=== PATIENT | female | born 1985 | race African-American/Black ===

== ENCOUNTER 2024-11-22 11:41 | Emergency (ER) | payer OTHER ==
[~2024-11-22] VITALS: Ht 160 cm; Wt 50.9 kg
--- NOTE | 2024-11-22 11:53 | ED.PDOC ---
GI ASSESSMENT HPI Comments 39 y.o female with PMHx of GERD, presents to the ED for a chief complaint of epigastric associated with nausea and vomiting that started today at 0300. Patient describes pain as sharp, radiating to her back, constant and rating a 10/10 on the pain scale. Patient was seen at [facility] when symptoms presented but AMA s/p staff attempting to give her pain medication. Patient reports she is unable to keep anything down and that pain is worse now. Patient denies any fever, chills, diarrhea, bleeding or dysuria. Patient does admit to smoking marijuana daily and alcohol occasionally. Time Seen by MD: 11:48 Reviewed Notes: Nurses Notes, Medications, Allergies Allergies: Coded Allergies: NO KNOWN ALLERGIES (Unverified , 11/22/24) Home Meds Active Scripts Ondansetron Odt 4MG Tab (ZOFRAN PO) 4 Mg Tb, 4 MG PO Q8HP PRN for 7 Days, #21 TAB ODT TAB-DISSOLVE IN MOUTH, THEN SWALLOW Prov:BAY MONTILLA MD 11/22/24 Pantoprazole Sodium Sesquihydr (Protonix) 40 Mg Tab, 40 MG PO DAILY, #30 TAB Prov:BAY MONTILLA MD 11/22/24 Information Source: Patient Mode of Arrival: Ambulatory Timing: Hours Duration: Since onset Quality: Sharp Vomitus: Hard Stool: Normal Severity: Moderate Recent: None Recent Hx of: None Pain Location: Epigastric Modifying Factors: Nothing Associated sign and symptoms: Nausea, Vomiting, Abdominal Pain Past Medical History PAST MEDICAL HISTORY: GERD Surgical History: Cholecystectomy, Tubal Ligation HOME ATTENDANT History: Denies all HOME ATTENDANT Hx Family History Family History: Reviewed,noncontributory to illness Social History Smoker: Non-Smoker Alcohol: Occasionally Drugs: Marijuana Lives In: Home Constitutional: denies: chills, diaphoresis, fatigue, fever, malaise, sweats, weakness, others EENTM: denies: blurred vision, double vision, ear bleeding, ear discharge, ear drainage, ear pain, ear ringing, eye pain, eye redness, hearing loss, mouth pain, mouth swelling, nasal discharge, nose bleeding, nose congestion, nose pain, photophobia, tearing, throat pain, throat swelling, voice changes, others Respiratory: denies: cough, hemoptysis, orthopnea, SOB at rest, shortness of breath, SOB with excertion, stridor, wheezing, others Cardiovascular: denies: chest pain, dizzy spells, diaphoresis, Dyspnea on exertion, edema, irregular heart beat, left arm pain, lightheadedness, palpitations, PND, syncope, others Gastrointestinal: reports: abdominal pain, nausea, vomiting; denies: abdomen distended, blood streaked bowels, constipated, diarrhea, dysphagia, difficulty s wallowing, hematemesis, melena, poor appetite, poor fluid intake, rectal bleeding, rectal pain, others Genitourinary: denies: abnormal vagina bleeding, burning, dyspareunia, dysuria, flank pain, frequency, hematuria, incontinence, pain, , vagina discharge, urgency, others Neurological: denies: dizziness, fainting, headache, left sided numbness, left sided weakness, numbness, paresthesia, pre-existing deficit, right sided numbness, right sided weakness, seizure, speech problems, tingling, tremors, weakness, others Musculoskeletal: reports: back pain; denies: gout, joint pain, joint swelling, muscle pain, muscle stiffness, neck pain, others Integumetry: denies: bruises, change in color, change in hair/nails, dryness, laceration, lesions, lumps, rash, wounds, others Allergic/Immunocompromised: denies: Difficulty Healing, Frequent Infections, Hives, Itching, others Hematologic/Lymphatic: denies: anemia, blood clots, easy bleeding, easy bruising, swollen glands, others Endocrine: denies: excessive hunger, excessive sweating, excessive thirst, excessive urination, flushing, intolerance to cold, intolerance to heat, unexplained weight gain, unexplained weight loss, others Psychiatric: denies: anxiety, bipolar disorder, depression, hopeless, panic disorder, schizophrenia, sleepless, suicidal, others All Other Systems: Reviewed and Negative Physical Exam General Appearance: Mild Distress HEENT: Normal ENT Inspection, Pharynx Normal, TMs Normal Neck: Full Range of Motion, Non-Tender, Normal, Normal Inspection Respiratory: Chest Non-Tender, Lungs Clear, No Accessory Muscle Use, No Respiratory Distress, Normal Breath Sounds Cardiovascular: No Edema, No JVD, No Murmur, No Gallop, Normal Peripheral Pulses, Regular Rate/Rhythm Breast Exam: Deferred Gastrointestinal: Epigastric, No Organomegaly, No Pulsatile Mass, Normal Bowel Sounds, Soft, Tenderness Genitalia: Deferred Pelvic: Deferred Rectal: Deferred Extremities: No calf tenderness, Normal capillary refill, Normal inspection, Normal range of motion, Non-tender, No pedal edema Musculoskeletal : Apperance: Normal Neurologic: Alert, 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 Was a procedure done?: No GI differential Dx Differential Diagnosis: Esophagitis, Gastritis/PUD, Gastroenteritis, Inflammatory BD, Drug toxicity Other Differential Diagnosis GERD X-Ray, Labs, Meds, VS Vital Signs Date Time Temp Pulse Resp B/P (MAP) Pulse Ox O2 Delivery O2 Flow Rate FiO2 11/22/24 13:13 93 16 131/82 11/22/24 12:35 81 20 153/96 11/22/24 12:31 98.0 81 20 153/96 (115) 99 98.0 11/22/24 12:31 81 20 99 Room Air* 0 21 11/22/24 11:50 98.1 92 16 146/107 (120) 99 98.1 Lab Test 11/22/24 13:33 11/22/24 12:01 Range/Units Urine Color Yellow Yellow Urine Clarity Cloudy H Clear Urine pH 8.0 5.0-9.0 Urine Specific [place] 1.028 1.001-1.035 Urine Protein Trace H Negative Urine Ketones 2+ H Negative Urine Blood Negative Negative /uL Urine Nitrite Negative Negative Urine Bilirubin Negative Negative Urine Urobilinogen Normal Negative mg/dL Urine Leukocyte Esterase Negative Negative /uL Urine RBC 6 0 - 4 /hpf Urine Microscopic WBC 2 0-5 /HPF Urine Squamous Epithelial Cells Many <5 /hpf Urine Bacteria Few H None Seen /hpf Urine Glucose Normal Normal mg/dL Urine Test Negative Negative White Blood Count 9.7 4.4-10.8 10^3/uL Red Blood Count 4.44 4.0-5.20 10^6/uL Hemoglobin 14.5 12.2-16.2 g/dL Hematocrit 42.7 36.0-46.0 % Mean Corpuscular Volume 96.1 80.0-100.0 fL Mean Corpuscular Hemoglobin 32.7 H 28.0-32.0 pg Mean Corpuscular Hemoglobin Concent 34.0 32.0-36.0 g/dL Red Cell Distribution Width 13.8 11.8-14.3 % Platelet Count 387 140-450 10^3/uL Mean Platelet Volume 7.3 6.9-10.8 fL Neutrophils (%) (Auto) 75.8 37.0-80.0 % Lymphocytes (%) (Auto) 18.2 10.0-50.0 % Monocytes (%) (Auto) 5.4 0.0-12.0 % Eosinophils (%) (Auto) 0.2 0.0-7.0 % Basophils (%) (Auto) 0.4 0.0-2.0 % Neutrophils # (Auto) 7.4 1.6-8.6 10 ^3/uL Lymphocytes # (Auto) 1.8 0.4-5.4 10 ^3/uL Monocytes # (Auto) 0.5 0-1.3 10 ^3/uL Eosinophils # (Auto) 0 0-0.8 10 ^3/uL Basophils # (Auto) 0 0-0.2 10 ^3/uL Nucleated Red Blood Cells 0.1 % Sodium Level 138 136-145 mmol/L Potassium Level 3.8 3.5-5.1 mmol/L Chloride Level 111 H 98-107 mmol/L Carbon Dioxide Level 22 20-31 mmol/L Anion Gap 5 5-15 Blood Urea Nitrogen 7 L 9-23 mg/dL Creatinine 0.86 0.550-1.02 mg/dL Glomerular Filtration Rate Calc 89 >90 mL/min BUN/Creatinine Ratio 8.1 L 10.0-20.0 Serum Glucose 136 H 74-106 mg/dL Calcium Level 9.8 8.7-10.4 mg/dL Total Bilirubin 0.4 0.2-1.0 mg/dL Aspartate Amino Transferase (AST) 12 L 13-40 U/L Alanine Aminotransferase (ALT) 9 7-40 U/L Alkaline Phosphatase 81 46-116 U/L Total Protein 7.6 5.7-8.2 g/dL Albumin 4.6 3.2-4.8 g/dL Lipase 30 12-53 U/L Current Medications Medications (Trade) Dose Ordered Sig/Sunita Route Start Time Stop Time Status Last Admin Sodium Chloride 1,000 ml @ 1,000 mls/hr Q1H ONCE IVB 11/22/24 12:00 11/22/24 12:59 DC 11/22/24 12:35 Prochlorperazine Edisylate (Compazine Inj) 10 mg ONCE ONCE IV 11/22/24 12:00 11/22/24 12:01 DC 11/22/24 12:35 Pantoprazole Sodium (Protonix) 40 mg ONCE ONCE IV 11/22/24 12:00 11/22/24 12:01 DC 11/22/24 12:35 Morphine Sulfate 4 mg ONCE ONCE IV 11/22/24 12:00 11/22/24 12:01 DC 11/22/24 12:35 IV Hep-Lock was established. The patient was given 1 L bolus of normal saline. The patient was given Compazine 10 mg IV push for the vomiting The patient was given Protonix 40 mg IV push The patient was given morphine 4 mg IV push for the pain At this time the patient's CBC is within normal limits The chemistry panel is within normal limits. The urine test is negative for infection The patient states that she is feeling much better after the medications that were given. The patient was given substance abuse counseling The patient was being discharged and will follow up with the primary care doctor The patient was given a prescription of Protonix and Zofran The test is negative Time of 1ST Reevaluation: 11:50 Reevaluation 1ST: Unchanged Time of 2ND Reevaluation: 14:21 Reevaluation 2ND: Improved Patient Education/Counseling: Diagnosis, Treatment, Prognosis, Need For Follow Up Family Education/Counseling: No Family Present Departure 1 Departure Time of Disposition: 14:21 Impression: Primary Impression: Cannabinoid hyperemesis syndrome Disposition: 01 HOME / SELF CARE / HOMELESS Condition: Fair e-Prescriptions Ondansetron Odt 4MG Tab (ZOFRAN PO) 4 Mg Tb 4 MG PO Q8HP PRN for 7 Days, #21 TAB ODT TAB-DISSOLVE IN MOUTH, THEN SWALLOW Prov: BAY MONTILLA MD 11/22/24 Pantoprazole Sodium Sesquihydr (Protonix) 40 Mg Tab 40 MG PO DAILY, #30 TAB Prov: BAY MONTILLA MD 11/22/24 Discharged With: Self Critical Care Note Critical Care Time?: No Stability Stability form required: No I personally scribed for BAY MONTILLA MD ([email or web address]) on 11/22/24 at 11:53. Electronically submitted by Rupali Younger ([facility]). BAY MONTILLA MD Nov 22, 2024 11:53
[2024-11-22 12:11] LABS: Basophils # (auto) 0 10 ^3/uL (0-0.2); Basophils % (auto) 0.4 % (0.0-2.0); Eosinophils # (auto) 0 10 ^3/uL (0-0.8); Eosinophils % (auto) 0.2 % (0.0-7.0); Hematocrit 42.7 % (36.0-46.0); Hemoglobin 14.5 g/dL (12.2-16.2); Lymphocytes # (auto) 1.8 10 ^3/uL (0.4-5.4); Lymphocytes % (auto) 18.2 % (10.0-50.0); Mean Corpuscular Hemoglobin 32.7 pg (28.0-32.0); Mean Corpuscular Volume 96.1 fL (80.0-100.0); Monocytes # (auto) 0.5 10 ^3/uL (0-1.3); Monocytes % (auto) 5.4 % (0.0-12.0); Neutrophils # (auto) 7.4 10 ^3/uL (1.6-8.6); Neutrophils % (auto) 75.8 % (37.0-80.0); Nucleated Red Blood Cells % 0.1 %; Platelet Count (auto) 387 10^3/uL (140-450); Red Blood Cells 4.44 10^6/uL (4.0-5.20); Red Cell Distribution Width 13.8 % (11.8-14.3); White Blood Cell 9.7 10^3/uL (4.4-10.8)
[2024-11-22 12:31] VITALS: PULSE 81; RESP 20; TEMP 98; O2SAT 99
[2024-11-22] MEDS: SODIUM CHLORIDE 0.9% 1,000 ML IVB ONE (12:35)
[2024-11-22] MEDS: PROCHLORPERAZINE EDISYLATE 5 MG/ML 2ML VIAL IV ONE (12:35)
[2024-11-22] MEDS: PANTOPRAZOLE 40 MG/10 ML VIAL INJ IV ONE (12:35)
[2024-11-22] MEDS: MORPHINE SULFATE 4 MG/ML SYR/VIAL IV ONE (12:35)
[2024-11-22 12:36] LABS: Albumin 4.6 g/dL (3.2-4.8); Alkaline Phosphatase 81 U/L (46-116); Anion Gap 5 (5-15); BUN/Creatinine Ratio 8.1 (10.0-20.0); Bilirubin, Total 0.4 mg/dL (0.2-1.0); Calcium 9.8 mg/dL (8.7-10.4); Carbon Dioxide 22 mmol/L (20-31); Lipase 30 U/L (12-53); Potassium 3.8 mmol/L (3.5-5.1); Sodium 138 mmol/L (136-145); Total Protein 7.6 g/dL (5.7-8.2)
[2024-11-22 12:37] LABS: Alanine Aminotransferase 9 U/L (7-40); Aspartate Aminotransferase 12 U/L (13-40); Blood Urea Nitrogen 7 mg/dL (9-23); Chloride 111 mmol/L (98-107); Glucose 136 mg/dL (74-106)
[2024-11-22 13:13] VITALS: BP 131/82; PULSE 93; RESP 16
[2024-11-22 14:05] LABS: Urine Bacteria FEW /hpf (None Seen); Urine Blood Negative /uL (Negative); Urine Color Yellow (Yellow); Urine Protein, UAD TRACE (Negative); Urine Specific Gravity 1.028 (1.001-1.035); Urine Squamous Epithelial Cell MANY /hpf (<5); Urine Urobilinogen Normal (Negative); Urine WBC 2 /HPF (0-5)
[2024-11-22 14:07] LABS: Urine Clarity Cloudy (Clear)
[2024-11-22] MEDS ORDERED: ZOFR4T PO (14:17)
[2024-11-22] MEDS ORDERED: PANT40TA2 PO (14:17)
== END 2024-11-22 14:31 | disposition home or self-care (01) ==
LOC: ER 11:41
DX: R11.2 Nausea with vomiting, unspecified (principal); R10.13 Epigastric pain; M54.9 Dorsalgia, unspecified; F12.90 Cannabis use, unspecified, uncomplicated; K21.9 Gastro-esophageal reflux disease without esophagitis; Z79.899 Other long term (current) drug therapy; Z90.49 Acquired absence of other specified parts of digestive tract; Z98.51 Tubal ligation status
CPT/HCPCS: 36415; 80053; 81001; 81025; 83690; 85025; 96361; 96374; 96375; 99284; J0780; J2270; J2470; J7030